=== PATIENT | female | born 1970 | race African-American/Black ===

== ENCOUNTER 2019-02-16 20:27 | Emergency (ER) | payer OTHER ==
[2019-02-16] MEDS ORDERED: Bupivacaine 0.5% 10 ML VIAL ONE (20:48)
[2019-02-16] MEDS ORDERED: Lidocaine 1% (PF) 30 ML VIAL ONE (20:48)
--- NOTE | 2019-02-16 21:10 | RAD ---
XR right middle finger 3 views View HISTORY: Trauma to middle finger. COMPARISON: None. FINDINGS: There is soft tissue injury and fracture and partial amputation of the tuft of the distal p halanx of the middle finger. IMPRESSION: Soft tissue laceration and associated fracture and partial amputation of the distal most aspect of the distal phalanx of the middle
[2019-02-16] MEDS ORDERED: Triple Antibiotic Oint 1 GM Packet ONE (21:39)
== END 2019-02-16 22:24 | disposition home or self-care (01) ==
LOC: ERS 20:27
DX: S68.113A Complete traumatic metacarpophalangeal amputation of left middle finger, initial encounter (principal); I10 Essential (primary) hypertension; K21.9 Gastro-esophageal reflux disease without esophagitis; W23.0XXA Caught, crushed, jammed, or pinched between moving objects, initial encounter
CPT/HCPCS: 12001; J2001; J3490

== ENCOUNTER 2019-03-11 09:33 | Emergency (ER) | payer BC, OTHER ==
--- NOTE | 2019-03-11 10:27 | RAD ---
EXAM: XR Hand Rt 3 View STANDARD PROVIDED CLINICAL HISTORY: Pain status post injury COMPARISON: 02/16/2019 FINDINGS: Amputation of the third digit terminal tuft redemonstrated. No additional fracture is evident. Alignm ent appears anatomic. Joint spaces appear preserved. IMPRESSION: As above.
== END 2019-03-11 11:09 | disposition home or self-care (01) ==
LOC: ERS 09:33
DX: M79.644 Pain in right finger(s) (principal); I10 Essential (primary) hypertension; Z79.899 Other long term (current) drug therapy

== ENCOUNTER 2021-11-25 14:32 | Outpatient (CLI) | payer BC ==
[2021-11-25 15:12] LABS: #Eosinphils 0.3 10x3/uL (0.0-0.5); #Monocytes 0.5 10x3/uL (0.0-1.1); %Basophils 0.5 % (0.0-2.0); %Eosinophils 4.7 % (0.0-6.0); %Lymphocytes 27.1 % (18.0-47.0); %Monocytes 7.5 % (0.0-10.0); Hemoglobin 13.1 g/dL (12.0-15.5); Mean Corpuscular Hemoglobin 29.1 pg (27.0-33.0); Mean Corpuscular Volume 85.6 fl (81.6-98.3); Mean Platelet Volume 8.5 fl (7.4-10.4); Platelet Count 288 10x3/uL (150-450); RBC Distribution Width 13.6 % (11.5-14.5); White Blood Cell (WBC) Count 6.6 10x3/uL (3.5-10.5)
[2021-11-25 15:33] LABS: ALT (SGPT) 11 U/L (8-55); AST (SGOT) 16 U/L (5-34); Alkaline Phosphatase 39 U/L (40-110); Anion Gap 12 mmol/L (10-20); BUN (Urea Nitrogen) 9 mg/dL (9.8-20.1); Bilirubin, Total 0.3 mg/dL (0.2-1.2); Calc. Creatinine Clearance 0 mL/min (70-130); Carbon Dioxide 29 mmol/L (22-29); Chloride 105 mmol/L (98-107); Globulin 2.6 g/dL (2.4-3.5); Glucose 102 mg/dL (70-105); Potassium 3.6 mmol/L (3.5-5.1); Protein, Total 6.6 g/dL (6.0-8.3); Sodium 142 mmol/L (136-145)
[2021-11-26 00:20] LABS: SARS-CoV-2 PCR by NAA Not Detected (NotDetected)
== END 2021-11-25 14:33 | disposition home or self-care (01) ==
LOC: LABBT 14:32
PROVIDERS: ATTEND Surgery
DX: Z01.818 Encounter for other preprocedural examination (principal); K64.9 Unspecified hemorrhoids; Z20.822 Contact with and (suspected) exposure to COVID-19
CPT/HCPCS: 80053; 85025; 93005; 93010; U0003; U0005

== ENCOUNTER 2021-11-28 08:54 | Day surgery (SDC) | payer BC ==
[2021-11-26 16:06] VITALS: BMI 35.8
[2021-11-28] MEDS ORDERED: Fentanyl 100 MCG/2 ML VIAL ONE ×2 (10:30→12:18)
[2021-11-28] MEDS ORDERED: Sodium Chloride 0.9% 100 ML ONE (10:55)
[2021-11-28] MEDS ORDERED: cefOXitin 2 GM VIAL ONE (10:55)
[2021-11-28] MEDS ORDERED: Dexamethasone 20 MG/5 ML VIAL ONE (11:06)
[2021-11-28] MEDS ORDERED: Glycopyrrolate 0.2 MG/ML 5 ML SYRINGE ONE (11:06)
[2021-11-28] MEDS ORDERED: Ondansetron PF 4 MG/2 ML Vial ONE (11:06)
[2021-11-28] MEDS ORDERED: Lidocaine 1% PF 5 ML VIAL ONE (11:06)
[2021-11-28] MEDS ORDERED: Rocuronium Bromide 10 MG/ML (10ML VIAL) ONE (11:06)
[2021-11-28] MEDS ORDERED: PROPOFOL 200 MG/20 ML VIAL ONE (11:06)
[2021-11-28] MEDS ORDERED: Ketorolac Tromethamine 30 MG/ML VIAL ONE (11:06)
[2021-11-28] MEDS ORDERED: Bupivacaine PF 0.5% 30 ML VIAL ONE (11:23)
[2021-11-28] MEDS ORDERED: Lidocaine 2% Jelly 5 ML TUBE ONE (11:23)
[2021-11-28] MEDS ORDERED: Lidocaine 1% w/Epinephrine 1:100K 20 ML VIAL ONE (11:23)
[2021-11-28] MEDS ORDERED: Bacitracin Zinc Ointment 30 gm TUBE ONE (11:23)
== END 2021-11-28 14:50 | disposition home or self-care (01) ==
LOC: SDC 08:54
PROVIDERS: ATTEND Surgery
PROC: 06BY3ZC Excision of Hemorrhoidal Plexus, Percutaneous Approach (ICD-10-PCS; principal; 2021-11-28)
DX: K64.2 Third degree hemorrhoids (principal); Z79.899 Other long term (current) drug therapy; Z91.040 Latex allergy status
CPT/HCPCS: 88304; J0694; J1100; J1885; J2405; J2704; J3010; J3490; S0020

== ENCOUNTER 2023-11-26 09:20 | Outpatient (CLI) | payer BC ==
[2023-11-26 12:36] LABS: #Basophils 0.04 10x3/uL (0.0-0.2); #Eosinphils 0.24 10x3/uL (0.0-0.5); #Monocytes 0.67 10x3/uL (0.0-1.1); %Basophils 0.5 % (0.0-2.0); %Eosinophils 3.2 % (0.0-6.0); %Lymphocytes 20.9 % (18.0-47.0); %Neutrophils 66.3 % (40.0-75.0); Hematocrit 39.4 % (34.9-44.5); Hemoglobin 13.2 g/dL (12.0-15.5); Mean Corpuscular HGB CONC 33.5 g/dL (32.0-36.0); Mean Corpuscular Hemoglobin 28.5 pg (27.0-33.0); Mean Corpuscular Volume 85.1 fl (81.6-98.3); Mean Platelet Volume 9.2 fl (7.4-10.4); Platelet Count 346 10x3/uL (150-450); RBC Distribution Width 13.5 % (11.5-14.5); Red Blood Cell (RBC) Count 4.63 10x6/uL (3.90-5.03); White Blood Cell (WBC) Count 7.4 10x3/uL (3.5-10.5)
[2023-11-26 12:53] LABS: ALT (SGPT) 13 U/L (8-55); AST (SGOT) 13 U/L (5-34); Albumin 3.5 g/dL (3.5-5.0); Alkaline Phosphatase 48 U/L (40-110); Anion Gap 13 mmol/L (10-20); BUN (Urea Nitrogen) 10 mg/dL (9.8-20.1); Bilirubin, Total 0.3 mg/dL (0.2-1.2); Calc. Creatinine Clearance 0 mL/min (70-130); Calcium 9.2 mg/dL (7.8-10.44); Carbon Dioxide 23 mmol/L (22-29); Chloride 108 mmol/L (98-107); Estimated GFR 95; Globulin 3.7 g/dL (2.4-3.5); Glucose 95 mg/dL (70-105); Potassium 4.3 mmol/L (3.5-5.1); Protein, Total 7.2 g/dL (6.0-8.3); Sodium 140 mmol/L (136-145)
== END 2023-11-26 09:21 | disposition home or self-care (01) ==
LOC: LABBT 09:20
PROVIDERS: ATTEND Surgery
DX: Z01.818 Encounter for other preprocedural examination (principal); K60.1 Chronic anal fissure
CPT/HCPCS: 80053; 85025; 93005; 93010